=== PATIENT | female | born 1980 | race Caucasian/White ===

== ENCOUNTER 2025-01-27 03:46 | Inpatient (IN) | payer BC, OTHER ==
[~2025-01-27] VITALS: Ht 167.6 cm; Wt 91.2 kg
--- NOTE | 2025-01-27 04:31 | ED.PDOC ---
GI ASSESSMENT HPI Comments Past Medical History: Hypertension Past Surgical History: Denies HPI: Poor Historian. 44-year-old female presents to emergency department for evaluation of right upper quadrant focal tenderness to palpation without any associated symptoms. Pain is constant nonradiating. No alleviating or precipitating factors. This never happened before. No history of kidney stones. Contrary to what triage notes states, patient has no flank pain whatsoever. Denies any . Denies any drug use. Currently on amoxicillin for a strep throat infection. Past Medical History: Past Surgical History: REVIEW OF SYSTEMS: CONSTITUTIONAL: Denies acute: fever, diaphoresis, chills, generalized weakness. HEAD: Denies acute: headache, photophobia Eyes: Denies acute: Double vision, vision loss, eye pain, eye discharge. EARS: Denies acute: tinnitus, hearing loss, ear discharge, ear pain, THROAT: Denies acute: sore throat, swelling, difficulty swallowing , pain with swallowing, change in voice. NECK: Denies acute: neck pain, neck swelling, stiff neck. HEART: Denies acute : chest pain, palpitations, LUNGS: Denies acute: SOB, wheezing, cough, hemoptysis ABDOMEN: Denies acute: Nausea, Vomiting, diarrhea, melena , hematemesis, hematochezia SKIN: Denies acute: rash, redness, lesions, itchiness. EXTREMITIES: Denies acute: calf pain, numbness, tingling, weakness, denies pain in extremity. Denies acute: Low back pain. Neuro: Denies acute: focal neurological deficit, motor or sensory focal neurological deficit, tremors, seizure like activity, confusion, dizziness, change in mental status, loss of bowel or bladder function, cauda equina like symptoms. : Denies acute: dysuria, hematuria, flank pain, increase in urinary frequency. PSYCH: Denies acute: hallucination, suicidal ideation, homicidal ideation. FEMALE: Denies acute: abnormal vaginal bleeding, foul odor, unusual discharge. PHYSICAL EXAM: General: ----moderate----acute distress, awake and alert. Head: normocephalic, atraumatic. No raccoon's eyes, no mcconnell sign. Neck: supple, trachea is midline, no swelling. Throat: Normal phonation. Eyes:, no erythema, no purulent discharge, no proptosis, no icterus. Heart: regular rate, regular rhythm, no significant murmur appreciated. Lungs: no apparent respiratory distress, Able to speak in full sentences. No wheezing, no rhonchi, no crackles. No stridors Clear to auscultation bilaterally. Abdomen: Focal point of right upper quadrant tender to palpation, non distended, soft, no guarding, no rebound, + bowel sounds. Neuro: Awake, Alert, oriented to name, self, situation, follows commands GCS=15. Speech is normal. Skin: no petechia, no purpura, no cyanosis, non-pale, not jaundice. Lower extremities: --no - Pitting edema no deformity, no focal swelling, no calf TTP. Makes eye contact. moves all four extremities. Face: no apparent facial droop. No CVA tenderness to percussion bilaterally. Ambulating in the ED independently. ED COURSE: DISCLAIMER: This medical document was created using an electronic medical record system with voice recognition software and computerized dictation system. Although this doc ument has been carefully reviewed, there might still be some phonetic and typographical errors. Occasional wrong-word or "sound-alike" substitutions may have occurred due to the inherent limitations of voice recognition software. These areas are purely typographical due to imperfections of the software programs and do not reflect any compromise in the patient's medical care. Please read the chart carefully and recognize, using context, where these substitutions have occurred. Chief Complaint: Flank Pain Time Seen by MD: 04:30 Reviewed Notes: Allergies Information Source: Patient Mode of Arrival: Ambulatory Was a procedure done? Was a procedure done?: No GI differential Dx Differential Diagnosis: Other (DDX include Diverticulitis, colitis, gastroenteritis, acute abdomen, SBO, enteritis, constipation, volvulus, appendicitis, Gallbladder disease, choledocolithiasis, ascending cholangitis, pancreatitis, intraAbdominal mass/neoplasm, hepatitis, UTI, pylonephritis, kidney stone, aneurysm, dissection, Inflammatory bowel disease, gastroparesis, ischemic bowel,,,,,,Food poisoning, bacterial/parasitic/viral etiology, trauma, diabetes DKA,ovarian torsion, ovarian cyst/mass, tubo-ovarian abscess, , ectopic , PID, STD.) X-Ray, Labs, Meds, VS Vital Signs Date Time Temp Pulse Resp B/P (MAP) Pulse Ox O2 Delivery O2 Flow Rate FiO2 01/27/25 05:38 167/98 01/27/25 05:24 98.6 75 22 167/98 (121) 100 98.6 01/27/25 03:49 97.3 75 18 172/88 99 97.3 Lab Test 01/27/25 04:30 01/27/25 04:25 Range/Units Urine Color Colorless Yellow Urine Clarity Ex.turbid Clear Urine pH 8.5 5.0-9.0 Urine Specific [place] 1.018 1.001-1.035 Urine Protein 1+ H Negative Urine Ketones 2+ H Negative Urine Blood 3+ H Negative /uL Urine Nitrite Negative Negative Urine Bilirubin Negative Negative Urine Urobilinogen Normal Negative mg/dL Urine Leukocyte Esterase 1+ Negative /uL Urine RBC 4871 0 - 4 /hpf Urine Microscopic WBC 16 H 0-5 /HPF Urine Squamous Epithelial Cells None seen <5 /hpf Urine Bacteria None seen None Seen /hpf Urine Mucus Few None Seen Urine Glucose Normal Normal mg/dL Urine Opiates Screen Neg NEGATIVE Urine Fentanyl Screen Neg NEGATIVE Urine Barbiturates Screen Neg NEGATIVE Urine Phencyclidine Screen Neg NEGATIVE Urine Amphetamines Screen Neg NEGATIVE Urine Benzodiazepines Screen Neg NEGATIVE Urine Cocaine Screen Neg NEGATIVE Urine Cannabinoids Screen Neg NEGATIVE White Blood Count 13.2 H 4.4-10.8 10^3/uL Red Blood Count 5.16 4.0-5.20 10^6/uL Hemoglobin 13.6 12.2-16.2 g/dL Hematocrit 40.7 36.0-46.0 % Mean Corpuscular Volume 78.9 L 80.0-100.0 fL Mean Corpuscular Hemoglobin 26.3 L 28.0-32.0 pg Mean Corpuscular Hemoglobin Concent 33.4 32.0-36.0 g/dL Red Cell Distribution Width 15.0 H 11.8-14.3 % Platelet Count 409 140-450 10^3/uL Mean Platelet Volume 7.8 6.9-10.8 fL Neutrophils (%) (Auto) 81.5 H 37.0-80.0 % Lymphocytes (%) (Auto) 12.9 10.0-50.0 % Monocytes (%) (Auto) 4.8 0.0-12.0 % Eosinophils (%) (Auto) 0.4 0.0-7.0 % Basophils (%) (Auto) 0.4 0.0-2.0 % Neutrophils # (Auto) 10.7 H 1.6-8.6 10 ^3/uL Lymphocytes # (Auto) 1.7 0.4-5.4 10 ^3/uL Monocytes # (Auto) 0.6 0-1.3 10 ^3/uL Eosinophils # (Auto) 0.1 0-0.8 10 ^3/uL Basophils # (Auto) 0 0-0.2 10 ^3/uL Nucleated Red Blood Cells 0.0 % Sodium Level 137 136-145 mmol/L Potassium Level 2.9 L 3.5-5.1 mmol/L Chloride Level 101 98-107 mmol/L Carbon Dioxide Level 20 20-31 mmol/L Anion Gap 16 H 5-15 Blood Urea Nitrogen 6 L 9-23 mg/dL Creatinine 0.76 0.550-1.02 mg/dL Glomerular Filtration Rate Calc 99 >90 mL/min BUN/Creatinine Ratio 7.9 L 10.0-20.0 Serum Glucose 135 H 74-106 mg/dL Lactic Acid Level 2.9 *H 0.4-2.0 mmol/L Calcium Level 9.2 8.7-10.4 mg/dL Total Bilirubin 0.4 0.2-1.0 mg/dL Aspartate Amino Transferase (AST) 22 13-40 U/L Alanine Aminotransferase (ALT) 22 7-40 U/L Alkaline Phosphatase 109 46-116 U/L Total Protein 7.9 5.7-8.2 g/dL Albumin 4.3 3.2-4.8 g/dL Lipase 38 12-53 U/L Current Medications Medications (Trade) Dose Ordered Sig/Bernice Route Start Time Stop Time Status Last Admin Fentanyl Citrate 100 mcg ONCE ONCE IV 01/27/25 05:00 01/27/25 05:01 DC 01/27/25 05:38 Time of 1ST Reevaluation: 04:30 Reevaluation 1ST: Unchanged Patient Education/Counseling: Diagnosis, Treatment Family Education/Counseling: Diagnosis, Treatment Comments MDM: patient presented with the above HPI.---abdominal pain---workup was initiated. patient was found with the above mentioned diagnosis. the following medications were ordered: please refer to order lists of meds and tests obtained by myself Dr. Wilkinson. Patient ED course and VS have been stabilized. Patient has been reassessed in the ED and remained in a stable condition. Pertinent incidental findings were discussed with the patient and/or family. Patient/family voices understanding and is agreeable with plan. Patient has been observed in the ED adequate length of time to insure improvement/stability. Escalation of care considered: Consideration of escalation to observation or admission Sepsis protocol was initiated. Patient was ADMITTED to the medicine team for further evaluation and treatment of their presentation. All the reports of any imaging studies that were ordered by myself were reviewed by myself. SEPSIS Sepsis Screen Date sepsis recognized/suspect: Jan 27, 2025 Time Sepsis recognized/suspect: 352 Recent Procedure: No On Antibiotic Therapy: Yes Respiratory Rate >20: No Heart Rate >90: Yes Temp<36 C (96.8 F) or >38.3 C: No SBP <90 or MAP <65 mmHG: No New Acute Mental Status Change: No Is the patient on CPAP, BIPAP,: No Physician Orders Bologna Maker (01/27/25 ) Lactic Acid W/ Reflex Order (01/27/25 04:18) Ct Ab Pel Wo Con-No Oral Or Iv (01/27/25 04:18) Abdomen Limited (01/27/25 05:15) Vital Signs Date Time Temp Pulse Resp B/P (MAP) Pulse Ox O2 Delivery O2 Flow Rate FiO2 01/27/25 05:38 167/98 01/27/25 05:24 98.6 75 22 167/98 (121) 100 98.6 01/27/25 03:49 97.3 75 18 172/88 99 97.3 Laboratory Tests Test 01/27/25 04:25 Lactic Acid Level 2.9 mmol/L (0.4-2.0) *H White Blood Count 13.2 10^3/uL (4.4-10.8) H Medications Medications Dose Ordered Sig/Bernice Route Start Time Stop Time Status Last Admin Dose Admin Fentanyl Citrate 100 mcg ONCE ONCE IV 01/27/25 05:00 01/27/25 05:01 DC 01/27/25 05:38 Departure 1 Departure Time of Disposition: 06:01 Impression: Primary Impression: Sepsis Additional Impressions: UTI (urinary tract infection) Elevated lactic acid level Disposition: ADMITTED INPATIENT Admit to: Tele Condition: Guarded Discharged With: Self Critical Care Note Critical Care Time?: Yes (45 min-critical care time only) I personally scribed for CHOLO WILKINSON DO ([email or web address]) on 01/27/25 at 04:31. Electronically submitted by Jessee Pettit ([email or web address]). CHOLO WILKINSON DO Jan 27, 2025 04:31
[2025-01-27 05:02] LABS: Hemoglobin 13.6 g/dL (12.2-16.2)
[2025-01-27 05:03] LABS: Hematocrit 40.7 % (36.0-46.0); Mean Corpuscular Hemoglobin 26.3 pg (28.0-32.0); Mean Corpuscular Volume 78.9 fL (80.0-100.0); Nucleated Red Blood Cells % 0.0 %
--- NOTE | 2025-01-27 05:07 | DVH ---
Exam: CT CT AB PEL WO CON-NO ORAL OR IV History: flank pain Comparison Study: None Technique: Multidetector spiral CT of the abdomen was performed from lung bases to pubic symphysis. Imaging was performed without IV contrast. Axial, coronal and sagittal multiplanar reformats were obtained from the axial data set by the technologist. Radiation Dose : 1. Abdomen/Pelvis: CTDIvol 16.97 mGy, DLP 1122.92 mGy*cm. Findings: Evaluation of solid organs is limited due to lack of intravenous contrast use. Lower Chest: No acute findings. Liver: Unremarkable. Gallbladder and Biliary Tree: Unremarkable Pancreas: Mild atrophy. Spleen: Unremarkable. Adrenal Glands: Unremarkable. Kidneys/Ureters: No urinary stone or obstruction. Faint bilateral medullary calcification. Bladder: Grossly unremarkable for degree of distention. Pelvic Organs: Unremarkable Bowel: Normal caliber without wall thickening. Normal appendix. Vasculature: Unremarkable. Lymphadenopathy: No obvious adenopathy. Peritoneum: No ascites, free air, or fluid collection. Abdominal Wall: No significant hernia. Musculoskeletal: No acute findings. IMPRESSION: No acute abdominopelvic abnormality, evidence of urinary stone or obstruction. Radiation optimization: All CT scans at this facility use at least one of these dose optimization techniques: automated exposure control mA and/or kV adjustment per patient size (includes targeted exams where dose is matched to clinical indication) or iterative reconstruction.
[2025-01-27 05:17] LABS: Urine Protein, UAD 1+ (Negative)
[2025-01-27 05:25] LABS: Alanine Aminotransferase 22 U/L (7-40); Albumin 4.3 g/dL (3.2-4.8); Alkaline Phosphatase 109 U/L (46-116); Anion Gap 16 (5-15); BUN/Creatinine Ratio 7.9 (10.0-20.0); Calcium 9.2 mg/dL (8.7-10.4); Chloride 101 mmol/L (98-107); Lipase 38 U/L (12-53); Sodium 137 mmol/L (136-145); Total Protein 7.9 g/dL (5.7-8.2)
[2025-01-27 05:26] LABS: Bilirubin, Total 0.4 mg/dL (0.2-1.0)
[2025-01-27 05:30] LABS: Blood Urea Nitrogen 6 mg/dL (9-23); Carbon Dioxide 20 mmol/L (20-31); Glucose 135 mg/dL (74-106); Potassium 2.9 mmol/L (3.5-5.1)
[2025-01-27] MEDS: fentaNYL CITRATE 100 MCG/2 ML VL IV ONE (05:38)
[2025-01-27 05:59] LABS: Amphetamine Screen, Urine Neg (NEGATIVE); Barbiturate Scree,Urine Neg (NEGATIVE); Benzodiazephine Screen, Urine Neg (NEGATIVE); Cocaine Screen, Urine Neg (NEGATIVE); Opiate Scree,Urine Neg (NEGATIVE); Phencyclidine Screen, Urine Neg (NEGATIVE)
[2025-01-27 05:59] LABS: Lactic Acid w/Reflex 2.9 mmol/L (0.4-2.0)
[2025-01-27 06:00] LABS: Cannabinoid Screen, Urine Neg (NEGATIVE)
--- NOTE | 2025-01-27 06:12 | DVH ---
MEDICAL RECORDS NUMBER: [id number] PROCEDURE: US ABDOMEN LIMITED Date: 01/27/2025 05:37 AM HISTORY: RUQ PAIN COMPARISON: None FINDINGS: Multiple warner-scale and color flow images of the right upper quadrant were obtained. Liver: The liver appears unremarkable. Bile ducts:The extrahepatic common bile duct measures 5 mm. Gallbladder: Multiple large stones are seen in the gallbladder. Gallbladder wall thickening at 6 mm is questioned. No Mathews's sign is noted. Pancreas: The pancreas is not well evaluated given the overlying bowel gas. Right kidney: The right kidney is normal in size. There is normal echogenicity of the right kidney and there is no evidence of hydronephrosis.. IMPRESSION: 1. Cholelithiasis with gallbladder wall thickening. 2. No sonographic Mathews sign. 3. Findings are equivocal for acute cholecystitis.
--- NOTE | 2025-01-27 06:39 | DVH ---
MEDICAL RECORDS NUMBER: [id number] PROCEDURE: XY CHEST PORTABLE DATE: 01/27/2025 06:04 AM HISTORY: Sepsis Views:1 COMPARISON: None FINDINGS/IMPRESSION: Lungs: The lungs are clear. Mediastinum: Mediastinal structures appear unremarkable... Skeletal: The skeletal structures appear unremarkable.
[2025-01-27 07:03] LABS: INR 0.99 (0.9-1.15); Partial Thromboplastin Time 29.0 SEC (24.5-34.5); Prothrombin Time 10.5 sec (9.3-11.8)
[2025-01-27] MEDS: ONDANSETRON HCL 4 MG/2 ML VIAL IV ONE (07:32)
[2025-01-27] MEDS: MORPHINE SULFATE 4 MG/ML SYR/VIAL IV ONE (07:32)
[2025-01-27] MEDS: LACTATED RINGER'S 1,800 ML IV ONE (07:37)
[2025-01-27] MEDS: LISINOPRIL 20 MG TAB PO ONE (07:45)
[2025-01-27] MEDS: POTASSIUM CHL 20 Meq TABLET PO ONE (07:46)
[2025-01-27] MEDS ORDERED: ONDANSETRON HCL 4 MG/2 ML VIAL IV PRN (10:00)
[2025-01-27 10:15] VITALS: BP 157/89; PULSE 75; RESP 20; TEMP 98.6; O2SAT 96
[2025-01-27] MEDS: LISINOPRIL 5 MG TAB PO ONE (10:51)
[2025-01-27] MEDS: SODIUM CHLORIDE 0.9% 1,000 ML IV SCH (10:54)
--- NOTE | 2025-01-27 11:42 | DVHINCON2 ---
Consultation - Surgical Date Seen: Jan 27, 2025 Referring Physician Reason for Consultation Cholecystitis History of Present Illness History of Present Illness Mrs. Keys is a 44-year-old female who presented to the ED due to right upper quadrant abdominal pain that started last night around 8:30 p.m. after eating passed out and fries. States that the pain has not subsided at all and was associated with nausea and vomiting, vomiting x8 episodes. This is the 1st time she has this sort of pain. Denies fevers, chills, acholic stools, darkening of urine or eyes, changes in urinary or stooling habits. Past Medical/Surgical History Past Medical/Surgical History Past medical history hypertension, cervical cancer Past surgical history cervical cancer excision x3 Family and Social History Family and Social History Family history noncontributory ETOH/T Ob/drugs denies Allergies and medications Allergies: Coded Allergies: NO KNOWN ALLERGIES (Unverified , 01/27/25) Review of systems Review of Systems: HEENT:Normal, CVS:Normal, RESPIRATORY:Normal, GI:Abnormal (See HPI), :Normal, MSK:Normal, NEURO:Normal Examination Vital signs Vital Signs Date Time Temp Pulse Resp B/P (MAP) Pulse Ox O2 Delivery O2 Flow Rate FiO2 01/27/25 10:51 157/89 01/27/25 09:51 74 20 01/27/25 05:24 98.6 100 98.6 Medications Current Medications Medications (Trade) Dose Ordered Sig/Bernice Route PRN Reason Start Time Stop Time Status Last Admin Sodium Chloride 1,000 ml @ 100 mls/hr Q10H IV 01/27/25 10:00 01/27/25 10:54 Ondansetron HCl (Zofran) 4 mg Q4HP PRN IV NAUSEA / VOMITING 01/27/25 10:00 Morphine Sulfate 2 mg Q4HPRN PRN IV SEVERE PAIN (7-10 PAIN SCALE) 01/27/25 10:00 Piperacillin Sod/ Tazobactam Sod 100 ml @ 25 mls/hr Q8HR IV 01/27/25 14:00 Lisinopril (Zestril Tablet) 10 mg DAILY PO 01/28/25 10:00 Pantoprazole Sodium (Protonix) 40 mg DAILY IV 01/28/25 10:00 UNV Laboratory Labs Test 01/27/25 07:00 01/27/25 04:30 01/27/25 04:25 Range/Units Lactic Acid Level 1.8 0.4-2.0 mmol/L Urine Color Colorless Yellow Urine Clarity Ex.turbid Clear Urine pH 8.5 5.0-9.0 Urine Specific [place] 1.018 1.001-1.035 Urine Protein 1+ H Negative Urine Ketones 2+ H Negative Urine Blood 3+ H Negative /uL Urine Nitrite Negative Negative Urine Bilirubin Negative Negative Urine Urobilinogen Normal Negative mg/dL Urine Leukocyte Esterase 1+ Negative /uL Urine RBC 4871 0 - 4 /hpf Urine Microscopic WBC 16 H 0-5 /HPF Urine Squamous Epithelial Cells None seen <5 /hpf Urine Bacteria None seen None Seen /hpf Urine Mucus Few None Seen Urine Glucose Normal Normal mg/dL Urine Test Negative Negative Urine Opiates Screen Neg NEGATIVE Urine Fentanyl Screen Neg NEGATIVE Urine Barbiturates Screen Neg NEGATIVE Urine Phencyclidine Screen Neg NEGATIVE Urine Amphetamines Screen Neg NEGATIVE Urine Benzodiazepines Screen Neg NEGATIVE Urine Cocaine Screen Neg NEGATIVE Urine Cannabinoids Screen Neg NEGATIVE White Blood Count 13.2 H 4.4-10.8 10^3/uL Red Blood Count 5.16 4.0-5.20 10^6/uL Hemoglobin 13.6 12.2-16.2 g/dL Hematocrit 40.7 36.0-46.0 % Mean Corpuscular Volume 78.9 L 80.0-100.0 fL Mean Corpuscular Hemoglobin 26.3 L 28.0-32.0 pg Mean Corpuscular Hemoglobin Concent 33.4 32.0-36.0 g/dL Red Cell Distribution Width 15.0 H 11.8-14.3 % Platelet Count 409 140-450 10^3/uL Mean Platelet Volume 7.8 6.9-10.8 fL Neutrophils (%) (Auto) 81.5 H 37.0-80.0 % Lymphocytes (%) (Auto) 12.9 10.0-50.0 % Monocytes (%) (Auto) 4.8 0.0-12.0 % Eosinophils (%) (Auto) 0.4 0.0-7.0 % Basophils (%) (Auto) 0.4 0.0-2.0 % Neutrophils # (Auto) 10.7 H 1.6-8.6 10 ^3/uL Lymphocytes # (Auto) 1.7 0.4-5.4 10 ^3/uL Monocytes # (Auto) 0.6 0-1.3 10 ^3/uL Eosinophils # (Auto) 0.1 0-0.8 10 ^3/uL Basophils # (Auto) 0 0-0.2 10 ^3/uL Nucleated Red Blood Cells 0.0 % Prothrombin Time 10.5 9.3-11.8 sec Prothrombin Time INR 0.99 0.9-1.15 Activated Partial Thromboplast Time 29.0 24.5-34.5 SEC Sodium Level 137 136-145 mmol/L Potassium Level 2.9 L 3.5-5.1 mmol/L Chloride Level 101 98-107 mmol/L Carbon Dioxide Level 20 20-31 mmol/L Anion Gap 16 H 5-15 Blood Urea Nitrogen 6 L 9-23 mg/dL Creatinine 0.76 0.550-1.02 mg/dL Glomerular Filtration Rate Calc 99 >90 mL/min BUN/Creatinine Ratio 7.9 L 10.0-20.0 Serum Glucose 135 H 74-106 mg/dL Calcium Level 9.2 8.7-10.4 mg/dL Total Bilirubin 0.4 0.2-1.0 mg/dL Aspartate Amino Transferase (AST) 22 13-40 U/L Alanine Aminotransferase (ALT) 22 7-40 U/L Alkaline Phosphatase 109 46-116 U/L Total Protein 7.9 5.7-8.2 g/dL Albumin 4.3 3.2-4.8 g/dL Lipase 38 12-53 U/L Examination: GENERAL:Normal (Well nourished, alert awake and oriented x3), HEENT:Normal (No icterus, neck supple), LUNGS:Normal (Nonlabored breathing symmetric expansion), ABDOMEN:Abnormal (Nondistended, no scars, soft, depressible, right upper quadrant tenderness, no rebound, no guarding), SKIN:Normal (No jaundice) Problem List/Assessment/Plan Problems: (1) Acute cholecystitis due to biliary calculus Assessment and Plan Mrs. Keys is a 44-year-old female who presents with the acute cholecystitis. Ultrasound shows large gallstones at the neck of the gallbladder. CT scan also was reviewed and also shows the same stones. Patient has leukocytosis to 13.2, but LFTs are within normal limit. On physical exam she is tender to the right upper quadrant. These findings are consistent with acute cholecystitis. Patient will benefit from laparoscopic cholecystectomy. Procedure, risks, benefits, complications, and alternatives were discussed with the patient. She would like to proceed with surgery as planned. 1. On-call to OR for laparoscopic cholecystectomy, possible open 2. NPO 3. Continue IV antibiotics 4. Pain and nausea control 5. A.m. labs (ordered) Plan discussed with Plan discussed with: Patient Visit Coding Surgery Date of Service if different f: Jan 27, 2025 Billing Provider: TYREE LOPEZ MD Surgery Visit Codes: 44453 - INP CONSULT <110 MIN TYREE LOPEZ MD Jan 27, 2025 11:42
[2025-01-27] MEDS: PANTOPRAZOLE 40 MG/10 ML VIAL INJ IV SCH (12:02)
[2025-01-27] MEDS: MORPHINE SULFATE INJ 2 MG/ml SYRG IV PRN (12:06)
[2025-01-27 12:59] LABS: Nucleated Red Blood Cells % 0.0 %
[2025-01-27 13:00] VITALS: BP 146/80; PULSE 67; RESP 19; TEMP 97.8; O2SAT 95
[2025-01-27 13:02] LABS: Hematocrit 38.7 % (36.0-46.0); Hemoglobin 12.9 g/dL (12.2-16.2); Mean Corpuscular Hemoglobin 26.4 pg (28.0-32.0); Mean Corpuscular Volume 79.2 fL (80.0-100.0)
[2025-01-27 13:08] LABS: Chloride 100 mmol/L (98-107); Potassium 3.7 mmol/L (3.5-5.1); Sodium 137 mmol/L (136-145)
[2025-01-27 13:09] LABS: Calcium 9.0 mg/dL (8.7-10.4)
[2025-01-27 13:16] LABS: BUN/Creatinine Ratio 7.6 (10.0-20.0); Blood Urea Nitrogen < 5 mg/dL (9-23); Glucose 117 mg/dL (74-106)
[2025-01-27 13:30] LABS: Triglycerides 80 mg/dL (< 150)
[2025-01-27 13:32] LABS: Cholesterol 129 mg/dL (< 200)
[2025-01-27 13:33] LABS: HDL Cholesterol 38 mg/dL (40-59)
[2025-01-27] MEDS: PIPERACILLIN-TAZOB 3.375GM 100 ML IV SCH (13:53)
[2025-01-27] MEDS ORDERED: AMOX250T8 PO (14:30)
[2025-01-27] MEDS ORDERED: LISI10TA34 PO (14:30)
--- NOTE | 2025-01-27 14:33 | DVHHPRES ---
History of Present Illness Resident Creating Document: STELLA BRISENO RESIDENT History of Present Illness This is a 44-year-old female with past medical history of hypertension came to ER with a complaint of right upper quadrant abdominal pain which started suddenly around 8:30 p.m. day before admission after eating spicy foods. Abdominal pain was 10/10 intensity, radiates to epigastric region, stabbing in nature, tried ibuprofen and Pepcid with does not helps a lot. Patient also have 5-6 episode of vomiting and the vomitus contained food material but not mixed with blood. Patient visited urgent care on 01/23/2025 due to sore throat and prescribed amoxicillin antibiotic. Patient denies any fever, SOB, chest pain, headache, dysuria or any other acute distress. Patient compliance with medication at home. Past medical history: As above Past surgical history: Nothing contributory Social history: Denies any EtOH use or illicit drug Family history: Nothing contributory Allergy": No known allergy PCP: [facility]( Kaleigh Maynard MD) HOME MEDICATION: LISINOPRIL Review of Systems Constitutional: Yes: Chills, Weakness, Malaise; No: Fever, Sweats, Other Eyes: No: Pain, Vision change, Conjunctivae inflammation, Eyelid inflammation, Other, Redness ENT: No: Ear pain, Ear discharge, Nose pain, Nose discharge, Nose congestion, Mouth pain, Mouth swelling, Throat pain, Throat swelling, Other Respiratory: No: Cough, Dry, Shortness of breath, SOB with excertion, Wheezing, Hemoptysis, Pleuritic Pain, Sputum, Wheezing, Other Cardiovascular: No: Chest Pain, Palpitations, Orthopnea, Paroxysmal Noc. Dyspnea, Edema, Lt Headedness, Other Gastrointestinal: Nausea, Vomiting, Abdominal Pain; No: Diarrhea, Constipation, Melena, Hematochezia, Other Genitourinary: No Dysuria, No Frequency, No Incontinence, No Hematuria, No Retention, No Other Musculoskeletal: No: other, neck pain, shoulder pain, arm pain, back pain, hand pain, leg pain, foot pain Skin: No: Rash, Lesions, Jaundice, Bruising, Other Neurological: No: Weakness, Numbness, Incoordination, Change in speech, Confusion, Seizures, Other Allergies: Coded Allergies: NO KNOWN ALLERGIES (Unverified , 01/27/25) Medications Current Medications Medications Dose Ordered Sig/Bernice Route Start Time Stop Time Status Last Admin Dose Admin Sodium Chloride 1,000 ml @ 100 mls/hr Q10H IV 01/27/25 10:00 01/27/25 10:54 100 MLS/HR Ondansetron HCl 4 mg Q4HP PRN IV 01/27/25 10:00 Morphine Sulfate 2 mg Q4HPRN PRN IV 01/27/25 10:00 01/27/25 12:06 2 MG Piperacillin Sod/ Tazobactam Sod 100 ml @ 25 mls/hr Q8HR IV 01/27/25 14:00 01/27/25 13:53 25 MLS/HR Lisinopril 10 mg DAILY PO 01/28/25 10:00 Pantoprazole Sodium 40 mg DAILY IV 01/27/25 11:37 01/27/25 12:02 40 MG Exam Vital Signs Vital Signs Date Time Temp Pulse Resp B/P (MAP) Pulse Ox O2 Delivery O2 Flow Rate FiO2 01/27/25 13:00 73 19 146/80 01/27/25 13:00 97.8 95 97.8 General Appearance: Oriented X3, Cooperative, No acute distress HEENT: Atraumatic, PERRLA, Mucous membr. moist/pink Respiratory: Clear to auscultation, Normal air movement Cardiovascular: Regular rate, Normal S1, Normal S2 Abdominal: Normal bowel sounds, Soft, Other (Tender on deep palpation right upper quadrant) Extremities: No clubbing, No cyanosis, No edema, Normal pulses Skin: No breakdown, No significant lesion Neuro: Normal gait, Normal speech, Strength at 5/5 X4 ext, Sensation intact Psych/Mental Status: Mental status NL, Mood NL Labs/Xrays Labs Test 01/27/25 12:16 01/27/25 07:00 01/27/25 04:30 01/27/25 04:25 Range/Units White Blood Count 15.2 H 4.4-10.8 10^3/uL Red Blood Count 4.89 4.0-5.20 10^6/uL Hemoglobin 12.9 12.2-16.2 g/dL Hematocrit 38.7 36.0-46.0 % Mean Corpuscular Volume 79.2 L 80.0-100.0 fL Mean Corpuscular Hemoglobin 26.4 L 28.0-32.0 pg Mean Corpuscular Hemoglobin Concent 33.3 32.0-36.0 g/dL Red Cell Distribution Width 15.1 H 11.8-14.3 % Platelet Count 363 140-450 10^3/uL Mean Platelet Volume 7.7 6.9-10.8 fL Neutrophils (%) (Auto) 84.4 H 37.0-80.0 % Lymphocytes (%) (Auto) 11.0 10.0-50.0 % Monocytes (%) (Auto) 4.4 0.0-12.0 % Eosinophils (%) (Auto) 0.1 0.0-7.0 % Basophils (%) (Auto) 0.1 0.0-2.0 % Neutrophils # (Auto) 12.8 H 1.6-8.6 10 ^3/uL Lymphocytes # (Auto) 1.7 0.4-5.4 10 ^3/uL Monocytes # (Auto) 0.7 0-1.3 10 ^3/uL Eosinophils # (Auto) 0 0-0.8 10 ^3/uL Basophils # (Auto) 0 0-0.2 10 ^3/uL Nucleated Red Blood Cells 0.0 % Sodium Level 137 136-145 mmol/L Potassium Level 3.7 3.5-5.1 mmol/L Chloride Level 100 98-107 mmol/L Carbon Dioxide Level 26 20-31 mmol/L Blood Urea Nitrogen < 5 L 9-23 mg/dL Creatinine 0.66 0.550-1.02 mg/dL Glomerular Filtration Rate Calc 111 >90 mL/min BUN/Creatinine Ratio 7.6 L 10.0-20.0 Serum Glucose 117 H 74-106 mg/dL Hemoglobin A1c 5.9 H <5.7 % A1C Calcium Level 9.0 8.7-10.4 mg/dL Triglycerides Level 80 < 150 mg/dL Cholesterol Level 129 < 200 mg/dL LDL Cholesterol 77 < 100 mg/dL HDL Cholesterol 38 L 40-59 mg/dL Thyroid Stimulating Hormone (TSH) 1.51 0.55-4.78 uIU/mL Lactic Acid Level 1.8 0.4-2.0 mmol/L Urine Color Colorless Yellow Urine Clarity Ex.turbid Clear Urine pH 8.5 5.0-9.0 Urine Specific [place] 1.018 1.001-1.035 Urine Protein 1+ H Negative Urine Ketones 2+ H Negative Urine Blood 3+ H Negative /uL Urine Nitrite Negative Negative Urine Bilirubin Negative Negative Urine Urobilinogen Normal Negative mg/dL Urine Leukocyte Esterase 1+ Negative /uL Urine RBC 4871 0 - 4 /hpf Urine Microscopic WBC 16 H 0-5 /HPF Urine Squamous Epithelial Cells None seen <5 /hpf Urine Bacteria None seen None Seen /hpf Urine Mucus Few None Seen Urine Glucose Normal Normal mg/dL Urine Test Negative Negative Urine Opiates Screen Neg NEGATIVE Urine Fentanyl Screen Neg NEGATIVE Urine Barbiturates Screen Neg NEGATIVE Urine Phencyclidine Screen Neg NEGATIVE Urine Amphetamines Screen Neg NEGATIVE Urine Benzodiazepines Screen Neg NEGATIVE Urine Cocaine Screen Neg NEGATIVE Urine Cannabinoids Screen Neg NEGATIVE Prothrombin Time 10.5 9.3-11.8 sec Prothrombin Time INR 0.99 0.9-1.15 Activated Partial Thromboplast Time 29.0 24.5-34.5 SEC Total Bilirubin 0.4 0.2-1.0 mg/dL Aspartate Amino Transferase (AST) 22 13-40 U/L Alanine Aminotransferase (ALT) 22 7-40 U/L Alkaline Phosphatase 109 46-116 U/L Total Protein 7.9 5.7-8.2 g/dL Albumin 4.3 3.2-4.8 g/dL Lipase 38 12-53 U/L SEPSIS Sepsis Screen Date sepsis recognized/suspect: Jan 27, 2025 Time Sepsis recognized/suspect: 352 Recent Procedure: No On Antibiotic Therapy: Yes Respiratory Rate >20: No Heart Rate >90: Yes Temp<36 C (96.8 F) or >38.3 C: No SBP <90 or MAP <65 mmHG: No New Acute Mental Status Change: No Is the patient on CPAP, BIPAP,: No Physician Orders Admit (01/27/25 09:47) Allergies (01/27/25 09:47) Code Status (01/27/25 09:47) Sodium Chloride 0.9% (01/27/25 10:00) Ondansetron Hcl (Zofran) (01/27/25 10:00) Morphine Sulfate Injection (01/27/25 10:00) Notify Of Changes From Base (01/27/25 09:47) Piperacillin-Tazob 3.375gm (Zosyn 3.375g (01/27/25 14:00) Urine Bacterial Culture (01/27/25 09:47) Lisinopril Tablet (Zestril Tablet) (01/28/25 10:00) Basic Metabolic Panel (01/27/25 11:27) Magnesium (01/28/25 04:00) Vitamin B12 (01/27/25 11:27) Vitamin D, 25-Hydroxy (01/27/25 11:27) Electrocardigram (01/27/25 11:27) Electrocardigram (01/27/25 12:27) Pantoprazole (Protonix) (01/27/25 11:37) Obtain Consent For: (01/27/25 11:42) Obtain Consent For Anesthesia (01/27/25 11:42) Complete Blood Count (01/28/25 04:00) Comprehensive Metabolic Panel (01/28/25 04:00) Bilirubin, Direct (01/28/25 04:00) Vital Signs Date Time Temp Pulse Resp B/P (MAP) Pulse Ox O2 Delivery O2 Flow Rate FiO2 01/27/25 13:00 73 19 146/80 01/27/25 13:00 97.8 67 19 146/80 (102) 95 97.8 01/27/25 12:06 75 20 157/89 01/27/25 10:51 157/89 01/27/25 10:15 98.6 75 20 157/89 (111) 96 98.6 01/27/25 09:51 74 20 129/89 01/27/25 07:45 197/109 01/27/25 07:32 64 19 197/109 Laboratory Tests Test 01/27/25 04:25 01/27/25 07:00 01/27/25 12:16 Lactic Acid Level 2.9 mmol/L (0.4-2.0) *H 1.8 mmol/L (0.4-2.0) White Blood Count 13.2 10^3/uL (4.4-10.8) H 15.2 10^3/uL (4.4-10.8) H Medications Medications Dose Ordered Sig/Bernice Route Start Time Stop Time Status Last Admin Dose Admin Ceftriaxone Sodium 50 ml @ 100 mls/hr ONCE ONCE IV 01/27/25 06:15 01/27/25 07:03 DC 01/27/25 07:31 100 MLS/HR Fentanyl Citrate 100 mcg ONCE ONCE IV 01/27/25 05:00 01/27/25 05:01 DC 01/27/25 05:38 100 MCG Lactated Ringer's 1,800 ml @ 1,800 mls/hr ONCE ONCE IV 01/27/25 06:15 01/27/25 07:14 DC 01/27/25 07:37 1,800 MLS/HR Lisinopril 10 mg ONCE ONCE PO 01/27/25 10:00 01/27/25 10:01 DC 01/27/25 10:51 10 MG Lisinopril 40 mg ONCE ONCE PO 01/27/25 07:45 01/27/25 07:46 DC 01/27/25 07:45 40 MG Morphine Sulfate 2 mg Q4HPRN PRN IV 01/27/25 10:00 01/27/25 12:06 2 MG Morphine Sulfate 4 mg ONCE ONCE IV 01/27/25 07:30 01/27/25 07:31 DC 01/27/25 07:32 4 MG Ondansetron HCl 4 mg ONCE ONCE IV 01/27/25 07:30 01/27/25 07:31 DC 01/27/25 07:32 4 MG Pantoprazole Sodium 40 mg DAILY IV 01/27/25 11:37 01/27/25 12:02 40 MG Piperacillin Sod/ Tazobactam Sod 100 ml @ 25 mls/hr Q8HR IV 01/27/25 14:00 01/27/25 13:53 25 MLS/HR Potassium Chloride 40 meq ONCE ONCE PO 01/27/25 07:45 01/27/25 07:46 DC 01/27/25 07:46 40 MEQ Sodium Chloride 1,000 ml @ 100 mls/hr Q10H IV 01/27/25 10:00 01/27/25 10:54 100 MLS/HR Assessment/Plan Assessment/Plan Intractable abdominal pain due to acute cholecystitis secondary to cholelithiasis Sepsis due to acute cholecystitis Ultrasound abdomen showed: Cholelithiasis with gallbladder wall thickening lactic cholecystitis. CT abdomen and pelvis unremarkable Lactic acid trending down 2.9 to 1 .8 Started empiric antibiotic ceftriaxone and Flagyl Surgery consult appreciated Possible laparoscopy cholecystectomy/open cholecystitis Keep patient NPO IVF Monitor vital Monitor labs Lactic acidosis Initial lactic acid 2.9, trending down to 1.8 IVF Essential hypertension Home medication lisinopril 10 mg Monitor blood pressure BP meds accordingly Hypokalemia Initial potassium 2.9 Supplemented BMP Complicated cystitis due to Gram-positive or Gram-negative back UA shows 1+ protein, 2+ ketone, 3+ blood, leukocyte esterase 1+, RBC 4871, WBC 16 Blood culture urine culture IVF Continue antibiotic Prediabetes HbA1c 5.9 GI prophylaxis: Pantoprazole DVT prophylaxis: Patient ambulating Goals of care discussions. Full code status. More than 29 minute spent with patient. Case discussed with Dr. Abarca Plan discussed with: Patient, Other (Nurse) My Orders Orders - STELLA BRISENO Procedure Category Date Status Time Admit ADMIT 01/27/25 Transmitted 09:47 Allergies ISSA 01/27/25 In Process 09:47 Code Status CODE 01/27/25 Transmitted 09:47 Sodium Chloride 0.9% PHA 01/27/25 In Process 10:00 Ondansetron Hcl PHA 01/27/25 In Process (Zofran) 10:00 Morphine Sulfate PHA 01/27/25 In Process Injection 10:00 Notify Of Changes ISSA 01/27/25 In Process From Base 09:47 Piperacillin-Tazob PHA 01/27/25 In Process 3.375gm (Zosyn 3.375g 14:00 Urine Bacterial AMI 01/27/25 In Process Culture 09:47 Lisinopril Tablet PHA 01/28/25 In Process (Zestril Tablet) 10:00 Basic Metabolic Panel LAB 01/27/25 In Process 11:27 Magnesium LAB 01/28/25 Verified 04:00 Vitamin B12 LAB 01/27/25 In Process 11:27 Vitamin D, 25-Hydroxy LAB 01/27/25 In Process 11:27 Electrocardigram EKG 01/27/25 Logged 11:27 Electrocardigram EKG 01/27/25 Logged 12:27 Pantoprazole PHA 01/27/25 In Process (Protonix) 11:37 Date of Service: Jan 27, 2025 Billing Provider: ERIN ABARCA MD Common Visit Codes: [id number] INP/OBS CARE (HIGH) Secondary Visit Codes: [id number] CARE PLAN 30 MINUTES STELLA BRISENO Jan 27, 2025 14:33
[2025-01-27 14:51] LABS: Anion Gap 11 (5-15); Carbon Dioxide 26 mmol/L (20-31)
[2025-01-27 16:04] VITALS: PULSE 88; RESP 16; O2SAT 98
[2025-01-27 17:00] VITALS: BP 162/91; PULSE 69; RESP 20; TEMP 98; O2SAT 98
[2025-01-27] MEDS ORDERED: LABETALOL HCL 20 MG/4 ML VL IV PRN ×2 (18:46→19:00)
[2025-01-27] MEDS: hydrALAZINE HCL 20 MG/ML VL IV PRN (18:55)
[2025-01-27 20:00] VITALS: RESP 17; O2SAT 97
[2025-01-27 21:00] VITALS: BP 150/86; PULSE 121; RESP 17; TEMP 97.9; O2SAT 97
[2025-01-28] VITALS (8 sets, daily range): BP systolic 99–153; BP diastolic 53–91; PULSE 73–125; RESP 16–20; TEMP 97.3–98.9; O2SAT 93–98
[2025-01-28 05:59] LABS: Nucleated Red Blood Cells % 0.0 %
[2025-01-28 06:03] LABS: Hematocrit 38.6 % (36.0-46.0); Hemoglobin 12.7 g/dL (12.2-16.2); Mean Corpuscular Hemoglobin 26.5 pg (28.0-32.0); Mean Corpuscular Volume 80.5 fL (80.0-100.0)
[2025-01-28 06:54] LABS: Albumin 4.1 g/dL (3.2-4.8); Anion Gap 11 (5-15); BUN/Creatinine Ratio 9.6 (10.0-20.0); Calcium 8.8 mg/dL (8.7-10.4); Carbon Dioxide 23 mmol/L (20-31); Chloride 105 mmol/L (98-107); Magnesium 2.5 mg/dL (1.6-2.6); Potassium 3.7 mmol/L (3.5-5.1); Sodium 139 mmol/L (136-145); Total Protein 7.4 g/dL (5.7-8.2)
[2025-01-28 06:55] LABS: Alanine Aminotransferase 44 U/L (7-40); Alkaline Phosphatase 120 U/L (46-116); Bilirubin, Direct 0.1 mg/dL (<0.3); Bilirubin, Total 0.4 mg/dL (0.2-1.0); Blood Urea Nitrogen 7 mg/dL (9-23); Glucose 118 mg/dL (74-106)
[2025-01-28] MEDS: LISINOPRIL 5 MG TAB PO SCH (09:18)
[2025-01-28] MEDS ORDERED: fentaNYL CITRATE 100 MCG/2 ML VL ONE (10:42)
[2025-01-28] MEDS ORDERED: MIDAZOLAM HCL 2MG/2ML 2ml VIAL (1mg/ml) ONE (10:42)
[2025-01-28] MEDS ORDERED: ONDANSETRON HCL 4 MG/2 ML VIAL ONE (10:43)
[2025-01-28] MEDS ORDERED: METOCLOPRAMIDE HCL 5MG/ml INJ 2ml VIAL ONE (10:43)
[2025-01-28] MEDS ORDERED: PROPOFOL 10 MG/ML 20 ML IV ONE (10:43)
[2025-01-28] MEDS ORDERED: HYDROmorphone HCL 2 MG/ML VL/or syr IV PRN (10:45)
[2025-01-28] MEDS ORDERED: ONDANSETRON HCL 4 MG/2 ML VIAL IV PRN (10:45)
[2025-01-28] MEDS ORDERED: METOCLOPRAMIDE HCL 5MG/ml INJ 2ml VIAL IV PRN (10:45)
[2025-01-28] MEDS: ACETAMINOPHEN IV 1000 MG/100ML (10MG/ML) IV ONE (10:45)
[2025-01-28] MEDS: BUPIVACAINE HCL 0.25% P/F 10 ML VIAL ONE (10:48)
[2025-01-28] MEDS ORDERED: SODIUM CHLORIDE LOCK 10 ML ONE (11:02)
[2025-01-28] MEDS ORDERED: ROCURONIUM 10MG/ML 10ML VIAL IV ONE (11:19)
[2025-01-28] MEDS ORDERED: HYDROmorphone HCL 2 MG/ML VL/or syr ONE (11:20)
[2025-01-28] MEDS ORDERED: SUGAMMADEX 200mg/2ml Vial (100MG/ML) IV ONE (11:28)
--- NOTE | 2025-01-28 12:13 | DVHOP2 ---
Operative Report - 2 Report Details Date: 01/28/25 Preop Diagnosis: Acute cholecystitis Postop Diagnosis: Same Surgeon: Charly Johnson MD Anesthesiologist: Ant garsia CRNA Anesthesia: General Consent: The patient was informed of the risks and benefits of the procedure. These include but are not limited to complications of anesthesia, postoperative infection, incomplete relief of symptoms, recurrence of symptoms, damage to blood vessels, nerves and tendons, deep venous thrombosis, pulmonary embolism and possible need for repeat surgery in the future. Complications: None Estimated Blood Loss: 5 mL Findings: Acutely inflamed and distended gallbladder Indications for Surgery: Acute cholecystitis Name of Procedure Performed Laparoscopic cholecystectomy Procedure Details Procedure Details: Upon arriving to the operating room the patient was transferred to the operating table and placed in the supine position with arms extended. General endotracheal anesthesia was induced. Time-out was observed. Patient was prepped and draped in the standard sterile surgical fashion with a chlorhexidine. I then proceeded to make a infraumbilical curvilinear incision and carried the dissection down to the fascia. Once at the fascia I grasped the umbilical stalk with a Emmie clamp and walked it down to its base. Once at the base of the umbilical stalk, I proceeded to gained entry into the peritoneal cavity utilizing the Srikanth technique. We then placed a fascial retention stitch in [id number] fashion with 0 Vicryl. I then inserted the Griffith trocar and insufflated the peritoneal cavity to 15 mmHg with toleration. I then inserted a 10 mm 30 degree laparoscope, surveyed the entry site, no injuries noted. Patient was then placed in the reverse Trendelenburg [id number] position. I then placed 3 additional working ports of 5 mm incise, at the epigastric area, right midclavicular subcostal area, and right flank. I then directed my attention to the liver and gallbladder. Gallbladder was acutely inflamed and distended. I then grasped the gallbladder at its fundus and retracted cephalad and towards the right shoulder. A 2nd grasper was placed at the infundibulum, to expose Calot triangle. I then incised the peritoneum on either side of the base of the gallbladder and carried it towards the liver, to a proximally mid gallbladder. I then proceeded to fully skeletonized Calot triangle and after doing such, I noted two structures entering the gallbladder (cystic duct and artery). Critical view of safety was obtained. I then proceeded to milk the cystic duct for any stones, non felt. I then proceeded to place 2 5 mm clips proximal on the artery and 1 distal. I then proceeded to place 3 5 mm clips proximal on the cystic duct and 1 distal. I then transected the cystic artery and cystic duct. I then started dissecting the gallbladder off of the liver bed, and noted a smaller posterior cystic artery branch. This posterior cystic artery branch was clipped 1 time proximal and cauterized distal. I then proceeded to continue dissecting the gallbladder off of the liver bed with cautery. Once the gallbladder was completely off of the liver bed, it was placed in the Endo-Catch bag and removed from the peritoneal cavity through the infraumbilical incision. I had very minimal bile leakage from the cystic duct clip. The liver bed was hemostatic. I then proceeded to serially irrigated the gallbladder fossa under the liver and over the liver until all effluent was clear. I then proceeded to inspect all clips, they were in place. This concluded the intraperitoneal portion of the operation. All counts were complete and correct. The 3 working ports were removed under direct vision, no bleeding from the abdominal wall. The peritoneal cavity was allowed to fully desufflate and the previous fascial retention stitch was closed. Marcaine 0.25% was used as local anesthetic. I then closed the skin at all sites with 4-0 Monocryl and Dermabond. Patient tolerated the procedure well and was transferred to PACU in stable condition. Specimen: Gallbladder and contents Condition Stable Disposition Still a Patient CHARLY LOPEZ MD Jan 28, 2025 12:13
--- NOTE | 2025-01-28 14:31 | DVHPNRES ---
Progress Note Date Seen: Jan 28, 2025 Resident Creating Document: FLORENCIO TERRELL RESIDENT Medical Necessity Reason Pt with a Central, PICC or Fol: No Subjective Review of Systems Salome Keys is a 44-year-old female with past medical history of hypertension, cervical cancer presented to the hospital with complaints of pain in the abdomen Since Tuesday. She rates the pain 10 on 10 in intensity, sharp, continuous with no aggravating or alleviating factors. She also complains of associated shortness of breath, tingling sensation. Patient reports that she has been having vomiting episodes which were nonbloody. Patient reports of having a strep throat infection and being started on amoxicillin last Tuesday. She denies any fever, chest pain or headache. PMHx:hypertension, cervical cancer PSHx: Noncontributory Family history: nonrelevant Social history: denies smoking, alcohol or illicit drug use Home medication: lisinopril Allergic history: no known allergies General: patient denies fever, fatigue, weaknes, sweating, any recent changes in appetite and weight HEENT: No headaches, visiual changes, hearing loss, tinnitus, nasal congestion and discharge, and sore throat. Cardiovascular: Denies chest pain, palpitations, dyspnea on exertion, orthopnea, or claudication. Respiratory: No cough, and wheezing. Gastrointestinal: complains of abdominal pain Genitourinary: No dysuria, hematuria, discharge, frequency, urgency, nocturia, incontinence, and urinary retention. Endocrine: No heat or cold intolerance, polydipsia, polyuria, and polyphagia. Neurological: No dizziness, extremity weakness and numbness, tremors, gait disturbance, seizures, and memory impairment. Psychiatric: Denies depression, anxiety,or insomnia. Musculoskeletal: Denies neck pain, stiffness and swelling, back pain, muscle weakness, joint pain, stiffness, swelling, or limited range of motion. Skin: No rashes, itching, skin lesion, changes in hair, nail, skin texture and breast. Hematologic/Lymphatic: Denies easy bruising, bleeding tendencies, or lymph node enlargement. Objective vital signs Vital Sign Date Time Temp Pulse Resp B/P (MAP) Pulse Ox O2 Delivery O2 Flow Rate FiO2 01/28/25 13:00 97.7 106 17 110/64 (79) 96 97.7 01/28/25 12:34 Nasal Cannula 2.0 96 Total Intake and Output 01/27/25 01/27/25 01/28/25 15:00 23:00 07:00 Intake Total 825 ml 3050 ml Output Total 1 ml Balance 824 ml 3050 ml medications Current Medications Medications Dose Ordered Sig/Bernice Route Start Time Stop Time Status Last Admin Dose Admin Sodium Chloride 1,000 ml @ 100 mls/hr Q10H IV 01/27/25 10:00 01/28/25 13:00 100 MLS/HR Ondansetron HCl 4 mg Q4HP PRN IV 01/27/25 10:00 Morphine Sulfate 2 mg Q4HPRN PRN IV 01/27/25 10:00 01/28/25 05:31 2 MG Piperacillin Sod/ Tazobactam Sod 100 ml @ 25 mls/hr Q8HR IV 01/27/25 14:00 01/28/25 13:54 25 MLS/HR Lisinopril 10 mg DAILY PO 01/28/25 10:00 01/28/25 09:18 10 MG Pantoprazole Sodium 40 mg DAILY IV 01/27/25 11:37 01/28/25 09:17 40 MG Hydralazine HCl 10 mg Q4HPRN PRN IV 01/28/25 02:00 01/27/25 18:55 10 MG Labetalol HCl 5 mg Q4HPRN PRN IV 01/27/25 19:00 Examination General Appearance: Alert, Oriented X3, Cooperative, No acute distress HEENT: Atraumatic, PERRLA, EOMI, Mucous membrane moist/pink Respiratory: Clear to auscultation, Normal air movement Cardiovascular: Regular rate, Normal S1, Normal S2, No murmurs, no chest wall tenderness Abdominal: tenderness in the right upper quadrant Extremities: No clubbing, No cyanosis, No edema, Normal pulses, No tenderness/swelling Skin: No rashes, No breakdown, No significant lesion Neuro: Normal gait, Normal speech, Strength at 5/5 X4 ext, Normal tone, Sensation intact, Cranial nerves 3-12 NL, Reflexes 2+ Psych/Mental Status: Mental status NL, Mood NL laboratory and microbiology Laboratory Tests 01/28/25 04:38 Test 01/28/25 04:38 Range/Units Serum Glucose 118 H 74-106 mg/dL Microbiology Date/Time Source Procedure Growth Status 01/27/25 06:46 Blood Blood Culture - Preliminary NO GROWTH AFTER 24 HOURS OF INCUBATION. Resulted 01/27/25 04:30 Voided Urine Urine Culture - Preliminary No growth Resulted Problem List/Assessment/Plan Problem List/Assessment/Plan Assessment and plan Intractable abdominal pain due to acute cholecystitis secondary to cholelithiasis Severe Sepsis due to acute cholecystitis Lactic acidosis Scheduled for laparoscopic cholecystectomy pain management, morphine Ultrasound abdomen showed: Cholelithiasis with gallbladder wall thickening lactic cholecystitis. CT abdomen and pelvis unremarkable Lactic acid trending down 2.9 to 1 .8 Started empiric antibiotic ceftriaxone and Flagyl Surgery consult Possible laparoscopy cholecystectomy/open cholecystitis Keep patient NPO IVF Monitor vital Monitor labs Initial lactic acid 2.9, trending down to 1.8 Essential hypertension Home medication lisinopril 10 mg Monitor blood pressure BP meds accordingly Hypokalemia Initial potassium 2.9 Supplemented BMP Complicated cystitis due to Gram-positive/Gram-negative bacteria UA shows 1+ protein, 2+ ketone, 3+ blood, leukocyte esterase 1+, RBC 4871, WBC 16 Blood culture urine culture IVF Continue antibiotics Prediabetes HbA1c 5.9 GI prophylaxis: Pantoprazole DVT prophylaxis: Patient ambulating goals of care discussed- full code case discussed with Dr. Muniz Plan discussed with: Patient My Orders My Orders Orders - FLORENCIO TERRELL Procedure Category Date Status Time Complete Blood Count LAB 01/29/25 Verified 04:00 Comprehensive LAB 01/29/25 Verified Metabolic Panel 04:00 Date of Service: Jan 28, 2025 Billing Provider: LIDIA CARTWRIGHT MD Common Visit Codes: [id number] INP/OBS CARE(HIGH) FLORENCIO TERRELL RESIDENT Jan 28, 2025 14:31
[2025-01-28] MEDS: HYDROcodone-ACET 10/325MG TAB PO PRN (16:52)
[2025-01-28] MEDS: ACETAMINOPHEN 325 MG TAB PO SCH (18:11)
[2025-01-28] MEDS: KETOROLAC TROMETH 30 MG/ML 1ML VIAL IV SCH (21:41)
[2025-01-29 01:00] VITALS: BP 110/65; PULSE 100; RESP 20; TEMP 97.7; O2SAT 92
[2025-01-29] MEDS: HYDROcodone-ACET 5/325MG TAB PO PRN (01:54)
[2025-01-29 04:57] VITALS: BP 100/61; PULSE 84; RESP 19; TEMP 98.2; O2SAT 99
[2025-01-29 06:21] LABS: Hematocrit 34.1 % (36.0-46.0); Hemoglobin 11.2 g/dL (12.2-16.2); Mean Corpuscular Hemoglobin 26.7 pg (28.0-32.0); Mean Corpuscular Volume 81.5 fL (80.0-100.0); Nucleated Red Blood Cells % 0.0 %
[2025-01-29 06:28] LABS: Alanine Aminotransferase 39 U/L (7-40); Albumin 3.6 g/dL (3.2-4.8); Alkaline Phosphatase 88 U/L (46-116); Anion Gap 9 (5-15); BUN/Creatinine Ratio 11.6 (10.0-20.0); Blood Urea Nitrogen 10 mg/dL (9-23); Carbon Dioxide 29 mmol/L (20-31); Chloride 103 mmol/L (98-107); Glucose 91 mg/dL (74-106); Potassium 4.2 mmol/L (3.5-5.1); Sodium 141 mmol/L (136-145); Total Protein 6.5 g/dL (5.7-8.2)
[2025-01-29 06:29] LABS: Bilirubin, Direct 0.1 mg/dL (<0.3); Bilirubin, Total 0.3 mg/dL (0.2-1.0); Calcium 8.4 mg/dL (8.7-10.4)
[2025-01-29 09:00] VITALS: BP 132/72; PULSE 64; RESP 16; TEMP 98.2; O2SAT 94
[2025-01-29] MEDS: POLYETHYLENE GLYCOL 17 GM PWDR PO SCH (09:34)
--- NOTE | 2025-01-29 11:21 | DVHPN2 ---
Progress Note - Surgical Date Seen: Jan 29, 2025 Post op day Post op day: 1 Subjective Patient reports: Feels better (Patient feeling good this morning, afebrile with vital stable, tolerating diet) Review of Systems: Deferred Objective Vital signs Vital Sign Date Time Temp Pulse Resp B/P (MAP) Pulse Ox O2 Delivery O2 Flow Rate FiO2 01/29/25 09:35 132/72 01/29/25 08:00 Room Air* 0 21 01/29/25 04:57 98.2 84 19 99 98.2 Total Intake and Output 01/28/25 01/28/25 01/29/25 15:00 23:00 07:00 Intake Total 100 ml 460 ml 500 ml Balance 100 ml 460 ml 500 ml Medications Current Medications Medications Dose Ordered Sig/Bernice Route Start Time Stop Time Status Last Admin Dose Admin Sodium Chloride 1,000 ml @ 100 mls/hr Q10H IV 01/27/25 10:00 01/29/25 01:51 100 MLS/HR Ondansetron HCl 4 mg Q4HP PRN IV 01/27/25 10:00 Morphine Sulfate 2 mg Q4HPRN PRN IV 01/27/25 10:00 Hold 01/28/25 05:31 2 MG Piperacillin Sod/ Tazobactam Sod 100 ml @ 25 mls/hr Q8HR IV 01/27/25 14:00 01/29/25 05:40 25 MLS/HR Lisinopril 10 mg DAILY PO 01/28/25 10:00 01/29/25 09:35 10 MG Pantoprazole Sodium 40 mg DAILY IV 01/27/25 11:37 01/29/25 09:34 40 MG Hydralazine HCl 10 mg Q4HPRN PRN IV 01/28/25 02:00 01/27/25 18:55 10 MG Labetalol HCl 5 mg Q4HPRN PRN IV 01/27/25 19:00 Acetaminophen 650 mg Q6HR PO 01/28/25 18:00 01/29/25 05:40 650 MG Ketorolac Tromethamine 15 mg Q8HR IV 01/28/25 22:00 02/02/25 21:59 01/29/25 05:40 15 MG Acetaminophen/ Hydrocodone Bitart 1 tab Q4HPRN PRN PO 01/28/25 14:45 01/29/25 01:54 1 TAB Acetaminophen/ Hydrocodone Bitart 1 tab Q4HP PRN PO 01/28/25 14:45 01/28/25 16:52 1 TAB Polyethylene Glycol 17 gm DAILY PO 01/29/25 10:00 01/29/25 09:34 17 GM Laboratory Laboratory Tests 01/29/25 04:46 Test 01/29/25 04:46 Range/Units Serum Glucose 91 74-106 mg/dL Microbiology Date/Time Source Procedure Growth Status 01/27/25 06:46 Blood Blood Culture - Preliminary NO GROWTH AFTER 48 HOURS OF INCUBATION. Resulted 01/27/25 04:30 Voided Urine Urine Culture - Preliminary No growth Resulted Examination: GENERAL:Normal (AA 0 X3), HEENT:Normal (No icterus), LUNGS:Normal (Nonlabored breathing with symmetric expansion), ABDOMEN:Normal (Nondistended, soft, depressible incision sites with overlying skin glue and without surrounding signs of infection, nontender) Labs and/or images reviewed: Labs reviewed by me (No leukocytosis and LFTs with a within normal limits) Problem List/Assessment/Plan Problems: (1) Acute cholecystitis due to biliary calculus Assessment and Plan Mrs. Keys is a 44-year-old female who presented with the acute cholecystitis and she is currently postop day 1 from laparoscopic cholecystectomy. Patient doing well, tolerating diet, ambulating, pain controlled and labs within normal limits. She is cleared per surgical standpoint for discharge. 1. Cleared for discharge per surgical standpoint 2. Low-fat diet 3. No lifting over 10 lb for 6 weeks 4. May shower starting today, soap and water okay to run over incision sites. No swimming and/or bathing for 2 weeks. 5. Tylenol and/or ibuprofen for baseline pain control, please follow landscape engineer's directions. 6. Recommend Brandon 5-325 mg 1 tab p.o. every 6 hours p.r.n. severe pain 7. No driving while taking narcotics 8. Follow up with Dr. Rivas at [facility] in 2 weeks, please call for appointment. My Orders My Orders Orders - TYREE LOPEZ MD Procedure Category Date Status Time Acetaminophen Tablet PHA 01/28/25 In Process (Tylenol Tablet) 18:00 Ketorolac Injection PHA 01/28/25 In Process (Toradol Injection) 22:00 Hydrocodone-Acet PHA 01/28/25 In Process 5/325mg Tab (Brandon 14:45 Hydrocodone-Acet PHA 01/28/25 In Process 10/325mg Tab (Brandon 14:45 Polyethylene Glycol PHA 01/29/25 In Process 17g Powder (Miralax 10:00 Plan discussed with Plan discussed with: Patient, Spouse Visit Coding Surgery Date of Service if different f: Jan 29, 2025 Billing Provider: TYREE LOPEZ MD Surgery Visit Codes: [id number] INP/OBS CARE(HIGH) TYREE LOPEZ MD Jan 29, 2025 11:21
[2025-01-29] MEDS ORDERED: HYDR-4902 PO (12:16)
[2025-01-29] MEDS ORDERED: AUG875T PO (12:16)
[2025-01-29 13:00] VITALS: BP 116/74; PULSE 71; RESP 18; TEMP 98.6; O2SAT 96
[2025-01-29] MEDS ORDERED: LIDOCAINE 1% INJ PF 5ML AMP IJ ONE (13:10)
--- NOTE | 2025-01-29 15:43 | DVHDSRES ---
Discharge Summary Date of Admission Resident Creating Document: FLORENCIO TERRELL RESIDENT Jan 27, 2025 at 09:47 Date of Discharge: Jan 29, 2025 Labs/Diagnostic Data: Laboratory Results Test 01/29/25 04:46 01/28/25 04:38 01/27/25 12:16 01/27/25 07:00 White Blood Count 10.5 10^3/uL (4.4-10.8) Red Blood Count 4.18 10^6/uL (4.0-5.20) Hemoglobin 11.2 g/dL (12.2-16.2) Hematocrit 34.1 % (36.0-46.0) Mean Corpuscular Volume 81.5 fL (80.0-100.0) Mean Corpuscular Hemoglobin 26.7 pg (28.0-32.0) Mean Corpuscular Hemoglobin Concent 32.8 g/dL (32.0-36.0) Red Cell Distribution Width 15.6 % (11.8-14.3) Platelet Count 293 10^3/uL (140-450) Mean Platelet Volume 7.8 fL (6.9-10.8) Neutrophils (%) (Auto) 68.1 % (37.0-80.0) Lymphocytes (%) (Auto) 23.5 % (10.0-50.0) Monocytes (%) (Auto) 7.1 % (0.0-12.0) Eosinophils (%) (Auto) 1.1 % (0.0-7.0) Basophils (%) (Auto) 0.2 % (0.0-2.0) Neutrophils # (Auto) 7.1 10 ^3/uL (1.6-8.6) Lymphocytes # (Auto) 2.5 10 ^3/uL (0.4-5.4) Monocytes # (Auto) 0.7 10 ^3/uL (0-1.3) Eosinophils # (Auto) 0.1 10 ^3/uL (0-0.8) Basophils # (Auto) 0 10 ^3/uL (0-0.2) Nucleated Red Blood Cells 0.0 % Sodium Level 141 mmol/L (136-145) Potassium Level 4.2 mmol/L (3.5-5.1) Chloride Level 103 mmol/L (98-107) Carbon Dioxide Level 29 mmol/L (20-31) Anion Gap 9 (5-15) Blood Urea Nitrogen 10 mg/dL (9-23) Creatinine 0.86 mg/dL (0.550-1.02) Glomerular Filtration Rate Calc 85 mL/min (>90) BUN/Creatinine Ratio 11.6 (10.0-20.0) Serum Glucose 91 mg/dL (74-106) Calcium Level 8.4 mg/dL (8.7-10.4) Total Bilirubin 0.3 mg/dL (0.2-1.0) Direct Bilirubin 0.1 mg/dL (<0.3) Aspartate Amino Transferase (AST) 34 U/L (13-40) Alanine Aminotransferase (ALT) 39 U/L (7-40) Alkaline Phosphatase 88 U/L (46-116) Total Protein 6.5 g/dL (5.7-8.2) Albumin 3.6 g/dL (3.2-4.8) Magnesium Level 2.5 mg/dL (1.6-2.6) Hemoglobin A1c 5.9 % A1C (<5.7) Triglycerides Level 80 mg/dL (< 150) Cholesterol Level 129 mg/dL (< 200) LDL Cholesterol 77 mg/dL (< 100) HDL Cholesterol 38 mg/dL (40-59) Vitamin B12 Level 555 pg/mL (211-911) Vitamin D 25-Hydroxy 49.3 ng/mL (30.0-100) Thyroid Stimulating Hormone (TSH) 1.51 uIU/mL (0.55-4.78) Lactic Acid Level 1.8 mmol/L (0.4-2.0) Test 01/27/25 04:30 01/27/25 04:25 Urine Color Colorless (Yellow) Urine Clarity Ex.turbid (Clear) Urine pH 8.5 (5.0-9.0) Urine Specific Sidney 1.018 (1.001-1.035) Urine Protein 1+ (Negative) Urine Ketones 2+ (Negative) Urine Blood 3+ /uL (Negative) Urine Nitrite Negative (Negative) Urine Bilirubin Negative (Negative) Urine Urobilinogen Normal mg/dL (Negative) Urine Leukocyte Esterase 1+ /uL (Negative) Urine RBC 4871 /hpf (0 - 4) Urine Microscopic WBC 16 /HPF (0-5) Urine Squamous Epithelial Cells None seen /hpf (<5) Urine Bacteria None seen /hpf (None Seen) Urine Mucus Few (None Seen) Urine Glucose Normal mg/dL (Normal) Urine Test Negative (Negative) Urine Opiates Screen Neg (NEGATIVE) Urine Fentanyl Screen Neg (NEGATIVE) Urine Barbiturates Screen Neg (NEGATIVE) Urine Phencyclidine Screen Neg (NEGATIVE) Urine Amphetamines Screen Neg (NEGATIVE) Urine Benzodiazepines Screen Neg (NEGATIVE) Urine Cocaine Screen Neg (NEGATIVE) Urine Cannabinoids Screen Neg (NEGATIVE) Prothrombin Time 10.5 sec (9.3-11.8) Prothrombin Time INR 0.99 (0.9-1.15) Activated Partial Thromboplast Time 29.0 SEC (24.5-34.5) Lipase 38 U/L (12-53) Other Laboratory Tests 01/29/25 04:46 Brief Hx & Hospital Course: Salome Keys is a 44-year-old female with past medical history of hypertension, cervical cancer presented to the hospital with complaints of pain in the abdomen since Tuesday. She rated the pain 10 on 10 in intensity, sharp, continuous with no aggravating or alleviating factors. She also complained of associated shortness of breath, tingling sensation. Patient reported that she had been having vomiting episodes which were nonbloody. Patient reported of having a strep throat infection and being started on amoxicillin last Tuesday. She denied any fever, chest pain or headache. Labs showed elevated WBC, mild transaminitis, elevated lactic acid and mild hypocalcemia. blood and urine culture came back negative. Gallbladder ultrasound showed cholelithiasis with gallbladder wall thickening. Patient was treated with IV antibiotic, pain killers, antiemetics, antihypertensives. Patient underwent laparoscopic cholecystectomy. Patient is being discharged with abdominal binder, instructions for home and with follow-up scheduled with the surgeon in 2 weeks. Condition at Discharge: Fair Final Diagnosis/Problems List S/P Laparoscopic Cholecystectomy Intractable abdominal pain due to acute cholecystitis secondary to cholelithiasis Severe Sepsis due to acute cholecystitis Lactic acidosis due to above Essential hypertension Hypokalemia Complicated cystitis due to Gram-positive/Gram-negative bacteria Prediabetes History of cervical cancer, on remission Discharge Disposition: Home Discharge Instruct/Medications Diet: Regular Diet comment: Low-fat diet Activity: No Restrictions, As Tolerated Follow Up/Referral: F/u with PCP in 7 days Follow up with Dr. Rivas at surgery Clinic in 2 weeks, please call for appointment. Scheduled Amoxicillin & Pot Clavulanate (Augmentin Tablet), 875 MG PO BID Lisinopril (Lisinopril), 10 MG PO DAILY, (Reported) Scheduled PRN Hydrocodone-Acetaminophen (Hydrocodone Bitartrate/AC 5-325 mg), 1 TAB PO Q6HPRN PRN Discontinued Medications Amoxicillin & Pot Clavulanate (Amoxicillin/Clavulanate P 250-125 mg), 875 TAB PO Q12HR, (Reported) Discharge Statement: "Patient was advised to return to the ER or call 911 if any headaches, dizziness, shortness of breath, chest pain, abdominal pain, bleeding, fevers, or worsening of medical condition. Patient was counseled about treatment plan, medications, possible side effects, patientverbalized understanding. All questions were answered to the best of my ability. This discharge took greater then 30 minutes in planning, reviewing documentation, counseling the patient, and discussing with other team members." ASSESSMENT ASSESSMENT Assessment Acute Cholecystitis Date of Service: Jan 29, 2025 Billing Provider: LIDIA CARTWRIGHT MD Common Visit Codes: [id number] DISCH DAY >30min FLORENCIO TERRELL Jan 29, 2025 15:43
== END 2025-01-29 16:45 | disposition home or self-care (01) | DRG 854 ==
LOC: ER 03:46 → OVERFLOW 09:47 → WEST WING 14:00
PROVIDERS: ADMIT Student in an Organized Health Care Education/Training Program; ATTEND Student in an Organized Health Care Education/Training Program
PROC: 0FT44ZZ Resection of Gallbladder, Percutaneous Endoscopic Approach (ICD-10-PCS; principal; 2025-01-28 10:48)
DX: A41.9 Sepsis, unspecified organism (principal); E87.20 Acidosis, unspecified; K80.00 Calculus of gallbladder with acute cholecystitis without obstruction; N39.0 Urinary tract infection, site not specified; I10 Essential (primary) hypertension; E87.6 Hypokalemia; R73.03 Prediabetes; K82.8 Other specified diseases of gallbladder; Z85.41 Personal history of malignant neoplasm of cervix uteri
CPT/HCPCS: 36415; 71045; 74176; 76705; 80048; 80053; 80061; 80307; 81001; 81025; 82248; 82306; 82607; 83036; 83605; 83690; 83735; 84443; 85025; 85610; 85730; 86850; 86900; 86901; 87040; 87086; 96365; 96375; 99291; G0378; J0131; J1885; J2250; J2405; J2470; J2543; J2704; J3490